=== PATIENT | female | born 1970 | race Caucasian/White ===

== ENCOUNTER 2018-10-20 07:30 | Inpatient (IN) | payer MEDICAID ==
[~2018-10-20] VITALS: Ht 165.1 cm; Wt 98.4 kg
[2018-10-20] VITALS (19 sets, daily range): BP systolic 99–160; BP diastolic 54–79
[~2018-10-20 07:30] MED LIST: OMEP20TA5 PO; VITAMIN B12 SQ
[2018-10-20] MEDS ORDERED: famotidine 20mg tablet PO ONE (09:45)
[2018-10-20] MEDS ORDERED: ringers solution, lacted 1,000 ML IV SCH ×2 (09:45→12:13)
[2018-10-20] MEDS ORDERED: albuterol 2.5 MG/3 ML nebule NEB ONE (09:45)
[2018-10-20] MEDS ORDERED: cefazolin/dext.iso 2gm/100ml 100 ML IV ONE (09:45)
[2018-10-20 11:20] LABS: BASOPHILS # (AUTO) 0.1 X10'3 (0-0.2); BASOPHILS % (AUTO) 0.9 % (0-1); EOSINOPHILS # (AUTO) 0.1 X10'3 (0-0.9); EOSINOPHILS % (AUTO) 0.8 % (0-6); LYMPHOCYTES % (AUTO) 19.7 % (21-51); MEAN CORPUSCULAR HEMOGLOBIN 24.3 PG (27.0-31.0); MEAN CORPUSCULAR VOLUME 76.1 FL (78-98); MEAN PLATELET VOLUME 8.7 FL (7.4-10.4); MONOCYTES # (AUTO) 0.9 X10'3 (0-0.9); MONOCYTES % (AUTO) 8.3 % (2-12); NEUTROPHILS # (AUTO) 7.3 X10'3 (1.8-7.7); NEUTROPHILS % (AUTO) 70.3 % (42-75); PRE OP HEMATOCRIT 34.7 % (35.0-45.0); PRE OP HEMOGLOBIN 11.1 g/dL (12.0-16.0); PRE OP PLATELET COUNT 233 X10'3 (140-440); RED BLOOD COUNT 4.57 X10'6 (4.20-5.60); RED CELL DISTRIBUTION WIDTH 15.2 % (11.5-14.5)
[2018-10-20 11:37] LABS: ALBUMIN 3.4 G/DL (3.4-5.0); ALBUMIN/GLOBULIN RATIO 0.8 (1.1-1.5); ALKALINE PHOSPHATASE 80 IU/L (46-116); BLOOD UREA NITROGEN 15 MG/DL (7-18); BUN/CREATININE RATIO 17.4 (6.6-38.0); CALCIUM 8.7 MG/DL (8.5-10.1); CHLORIDE 106 MMOL/L (99-107); CREATININE 0.86 MG/DL (0.40-0.90); PRE OP ALT 57 U/L (30-65); PRE OP ANION GAP 12 (8-16); PRE OP AST 57 U/L (10-37); PRE OP BILIRUB, TOTAL 0.4 MG/DL (0.0-1.0); PRE OP GLUCOSE 86 MG/DL (70-104); PRE OP POTASSIUM 4.2 MMOL/L (3.4-5.1); PRE OP SODIUM 138 MMOL/L (135-145); TOTAL PROTEIN 7.9 G/DL (6.4-8.2); eGFR 71 ML/MIN
[2018-10-20] MEDS ORDERED: fentaNYL/PF 50MCG/1 ML 2ML syringe IV PRN ×2 (12:15)
[2018-10-20] MEDS ORDERED: ondansetron/PF 4mg/2ml inj IV PRN ×2 (12:15→16:45)
[2018-10-20] MEDS ORDERED: ketorolac trometh. 30mg/ml inj. IV ONE (12:15)
[2018-10-20] MEDS ORDERED: HYDROmorphone inj. 0.5 MG/0.5 ML DISP.SYRIN IV PRN (12:15)
[2018-10-20] MEDS ORDERED: neostigmine methylsulfate 1 MG/ML 10ml vial ONE (12:51)
[2018-10-20] MEDS ORDERED: acetaminophen 1000 MG/100ml vial IV ONE (12:51)
[2018-10-20] MEDS ORDERED: glycopyrrolate 0.2mg/ml inj ONE (12:51)
[2018-10-20] MEDS ORDERED: rocuronium 10mg/ml inj IV ONE ×2 (12:51→14:58)
[2018-10-20] MEDS ORDERED: sevoflurane 250ml liquid IH ONE (12:51)
[2018-10-20] MEDS ORDERED: fentaNYL /PF 50mcg/ml 5ml ampule ONE (12:53)
[2018-10-20] MEDS ORDERED: midazolam 2 mg/2 ml injection ONE (12:53)
[2018-10-20] MEDS ORDERED: BUPIVAcaine/PF 2.5mg/ml (0.25%) 10ml vial ONE (12:57)
[2018-10-20] MEDS: ceFAZolin 1000mg inj ONE ×2 (13:31→13:32)
[2018-10-20] MEDS ORDERED: propofol inj 20 ML IV ONE (14:58)
[2018-10-20] MEDS ORDERED: fentaNYL/PF 50MCG/1 ML 2ML syringe ONE (14:59)
--- NOTE | 2018-10-20 15:38 | NUR ---
Received from OR via BED, accompanied by Anesthesiologist DR CAZARES and report given by Anesthesiologist. PT DROWSY, DENIES PAIN, ABDOMEN W/ABDOMINAL BINDER, PT HAS 7 LAP SITES W/ARMANDO AND BANDAIDS COVERING, ABDOMINAL BINDER CDI, MCCOY CATHETER TO GRAVITY DRAINAGE W/YELLOW URINE IN TUBING. Addendum: 10/20/18 at 1607 by Jennifer Cassidy RN Amended: Links added.
[2018-10-20] MEDS: HYDROmorphone inj. 0.5 MG/0.5 ML DISP.SYRIN IV PRN ×4 (16:04→16:57)
[2018-10-20] MEDS ORDERED: naloxone 0.4 mg/ml inj IV PRN (16:45)
[2018-10-20] MEDS ORDERED: CADD PCA waste documentation MC PRN (16:45)
[2018-10-20] MEDS ORDERED: HYDROmorphone/NS 1 mg/ml CADD 50 ML IV SCH (17:00)
[2018-10-20] MEDS ORDERED: CYAN10007 SQ (17:03)
[2018-10-20] MEDS: HYDROmorphone/NS 1 mg/ml CADD 50 ML IV SCH ×3 (17:07→23:00)
--- NOTE | 2018-10-20 17:18 | NUR ---
Report called to receiving nurse. Transferred via BED, 1 BAG OF PT Belongings SENT W/PT TO ROOM 360B, PT BECAME NAUSEATED IN ROUTE TO SURGICAL FLOOR, 4 MG ZOFRAN GIVEN, RECEIVING RN AT BEDSIDE TO RECEIVE PT, BLL, CALL LIGHT GIVEN, SIDE RAILS UP X 2. Special Issues communicated to receiving nurse. YES. Addendum: 10/20/18 at 1744 by Jennifer Cassidy RN Amended: Links added.
--- NOTE | 2018-10-20 17:32 | NUR ---
PT JUST CAME TO FLOOR. STARTED POST OP V/S AND TUCKED HER IN.
--- NOTE | 2018-10-20 18:10 | NUR ---
Patient in room SURG 360B. I have received report from ANNA Owusu and had the opportunity to ask questions and assume patient care.
--- NOTE | 2018-10-20 18:21 | NUR ---
Problems reprioritized. Patient report given, questions answered & plan of care reviewed with luis potter.
[2018-10-20] MEDS: Potassium Cl inj 20 MEQ in ringers solution, lacted 1,000 ML IV SCH (19:38)
[2018-10-20] MEDS: ceFAZolin 1GM/D5W- ADD-VANTAGE 50 ML IV SCH (23:50)
[2018-10-21] VITALS: BP 130/67
[2018-10-21] MEDS: Potassium Cl inj 20 MEQ in ringers solution, lacted 1,000 ML IV SCH ×4 (00:46→22:42)
[2018-10-21] MEDS: HYDROmorphone/NS 1 mg/ml CADD 50 ML IV SCH ×6 (01:00→11:00)
[2018-10-21 04:00] VITALS: BP 101/56
--- NOTE | 2018-10-21 06:45 | NUR ---
Patient in room [facility] 360. I have received report from Aron CASTILLO and had the opportunity to ask questions and assume patient care.
--- NOTE | 2018-10-21 06:51 | NUR ---
Problems reprioritized. Patient report given, questions answered & plan of care reviewed with ANNA Riley.
[2018-10-21 07:00] VITALS: BP 101/59
[2018-10-21] MEDS: ceFAZolin 1GM/D5W- ADD-VANTAGE 50 ML IV SCH ×2 (09:00→17:43)
[2018-10-21] MEDS: enoxaparin 40mg/0.4ml syringe SQ SCH (09:02)
[2018-10-21 11:00] VITALS: BP 109/60
[2018-10-21] MEDS: oxyCODONE/APAP 10/325mg tablet PO PRN ×3 (14:00→23:54)
[2018-10-21 18:00] VITALS: BP 124/63
--- NOTE | 2018-10-21 18:09 | NUR ---
Patient in room [facility] 360. I have received report from ANNA DIEZ and had the opportunity to ask questions and assume patient care.
--- NOTE | 2018-10-21 18:34 | NUR ---
Problems reprioritized. Patient report given, questions answered & plan of care reviewed with Aron CASTILLO.
[2018-10-22] VITALS: BP 129/49
[2018-10-22] MEDS: oxyCODONE/APAP 10/325mg tablet PO PRN ×2 (05:20→09:57)
[2018-10-22 06:00] VITALS: BP 112/55
--- NOTE | 2018-10-22 06:40 | NUR ---
Problems reprioritized. Patient report given, questions answered & plan of care reviewed with ANNA Baptiste.
[2018-10-22] MEDS: enoxaparin 40mg/0.4ml syringe SQ SCH (08:10)
[2018-10-22 11:00] VITALS: BP 121/60
[2018-10-22] MEDS ORDERED: ketorolac tromethamine 15mg/ml inj. IV PRN (11:30)
--- NOTE | 2018-10-22 15:45 | NUR ---
Per , the patient's discharge pain meds were called in to [facility]. Gilson with [facility] verified that patient's prescription was filled and picked up by patient's mother (per her signature) from the [facility] in [place], [place]. Pt's mother, Cyndi (at bedside), confirmed she picked up the med for the patient.
== END 2018-10-22 17:00 | disposition home or self-care (01) | DRG 227 ==
LOC: PAS IN 08:49 → EDSTATUS 12:30 → SUR 3N 20:24
PROVIDERS: ADMIT Surgery; ATTEND Surgery
PROC: 0DNU4ZZ Release Omentum, Percutaneous Endoscopic Approach (ICD-10-PCS; 2018-10-20)
PROC: 0WUF4JZ Supplement Abdominal Wall with Synthetic Substitute, Percutaneous Endoscopic Approach (ICD-10-PCS; principal; 2018-10-20 12:51)
DX: K43.2 Incisional hernia without obstruction or gangrene (principal); F12.90 Cannabis use, unspecified, uncomplicated; K66.0 Peritoneal adhesions (postprocedural) (postinfection); Z82.41 Family history of sudden cardiac death; Z86.14 Personal history of Methicillin resistant Staphylococcus aureus infection; Z87.442 Personal history of urinary calculi; Z87.891 Personal history of nicotine dependence; Z90.49 Acquired absence of other specified parts of digestive tract; Z98.51 Tubal ligation status; Z98.891 History of uterine scar from previous surgery; Z88.8 Allergy status to other drugs, medicaments and biological substances
CPT/HCPCS: 36415; 80053; 82948; 85025; 87081; 93005; A4215; A4618; A7000; C1758; C1781; G0378; J0131; J0690; J1170; J1650; J1885; J2250; J2405; J2704; J2710; J3010; J3480; J3490; J7120

== ENCOUNTER 2019-08-10 08:20 | Day surgery (SDC) | payer MEDICAID ==
[2019-08-03 16:31] LABS: BASOPHILS # (AUTO) 0.1 X10'3 (0-0.2); BASOPHILS % (AUTO) 1.3 % (0-1); EOSINOPHILS # (AUTO) 0.1 X10'3 (0-0.9); LYMPHOCYTES # (AUTO) 1.6 X10'3 (1.1-4.8); LYMPHOCYTES % (AUTO) 15.3 % (21-51); MEAN CORPUSCULAR HEMOGLOBIN 27.3 PG (27.0-31.0); MEAN CORPUSCULAR HGB CONC 32.6 g/dL (33.0-36.5); MEAN CORPUSCULAR VOLUME 83.8 FL (78-98); MEAN PLATELET VOLUME 9.6 FL (7.4-10.4); MONOCYTES # (AUTO) 0.7 X10'3 (0-0.9); MONOCYTES % (AUTO) 7.1 % (2-12); NEUTROPHILS % (AUTO) 75.3 % (42-75); PRE OP PLATELET COUNT 217 X10'3 (140-440); RED BLOOD COUNT 4.77 X10'6 (4.20-5.60); RED CELL DISTRIBUTION WIDTH 17.3 % (11.5-14.5)
[2019-08-03 16:41] LABS: ALBUMIN 3.4 G/DL (3.4-5.0); ALBUMIN/GLOBULIN RATIO 0.8 (1.1-1.5); ALKALINE PHOSPHATASE 99 IU/L (46-116); BLOOD UREA NITROGEN 10 MG/DL (7-18); CALCIUM 9.4 MG/DL (8.5-10.1); CHLORIDE 107 MMOL/L (99-107); CREATININE 1.11 MG/DL (0.40-0.90); PRE OP ALT 66 U/L (30-65); PRE OP ANION GAP 10 (8-16); PRE OP AST 76 U/L (10-37); PRE OP BILIRUB, TOTAL 0.5 MG/DL (0.0-1.0); PRE OP GLUCOSE 117 MG/DL (70-104); PRE OP SODIUM 140 MMOL/L (135-145); TOTAL CARBON DIOXIDE 22.8 MMOL/L (24-32); TOTAL PROTEIN 7.9 G/DL (6.4-8.2); eGFR 53 ML/MIN
[2019-08-03 16:43] LABS: CLARITY,URINE SLIGHTLY CLOUDY (Clear); COLOR,URINE YELLOW (Yellow); GLUCOSE, URINE NEGATIVE (Neg); KETONES,URINE NEGATIVE (Neg); LEUKOCYTE ESTERASE ,URINE NEGATIVE (Neg); NITRITES, URINE NEGATIVE (Neg); OCCULT BLOOD,URINE NEGATIVE (Neg); PH,URINE 5.5 (4.8-8.0); PROTEIN,URINE NEGATIVE (Neg)
[2019-08-03 16:50] LABS: UA COLLECTION TYPE CLN CATCH MIDSTREAM
[2019-08-03 16:51] LABS: BACTERIA,URINE 1+ /HPF (Neg); MUCUS STRANDS MANY /LPF (Neg); RBC,URINE NONE SEEN /HPF (0-2); SQUAMOUS EPITHELIAL CELL,UR MANY /LPF (FEW); WBC,URINE 0-4 /HPF (0-4)
[~2019-08-10] VITALS: Ht 165.1 cm; Wt 102.1 kg
[2019-08-10] VITALS (9 sets, daily range): BP systolic 112–126; BP diastolic 59–81
[~2019-08-10 08:20] MED LIST changes: +CYAN10007 SQ; -VITAMIN B12 SQ; +cefazolin/dext.iso 2gm/50ml 50 ML IV ONE; +famotidine 20mg tablet PO ONE; +ringers solution, lacted 1,000 ML IV SCH
[2019-08-10] MEDS ORDERED: LIDOcaine 1% (10mg/ml) 2ml vial ONE (09:06)
[2019-08-10] MEDS ORDERED: BUPIVAcaine/PF 2.5 mg/ml (0.25%) 30ml vial ONE (10:57)
[2019-08-10] MEDS ORDERED: ceFAZolin 1000mg inj ONE (10:57)
[2019-08-10] MEDS ORDERED: sevoflurane 250ml liquid IH ONE (11:24)
[2019-08-10] MEDS ORDERED: ringers solution, lacted 1,000 ML IV SCH (11:26)
[2019-08-10] MEDS ORDERED: midazolam 2 mg/2 ml injection ONE (11:29)
[2019-08-10] MEDS ORDERED: fentaNYL/PF 50MCG/1 ML 2ML syringe ONE (11:29)
[2019-08-10] MEDS ORDERED: HYDROmorphone inj. 0.5 MG/0.5 ML DISP.SYRIN IV PRN (11:30)
[2019-08-10] MEDS ORDERED: ondansetron/PF 4mg/2ml inj IV PRN (11:30)
[2019-08-10] MEDS ORDERED: fentaNYL/PF 50MCG/1 ML 2ML syringe IV PRN ×2 (11:30)
[2019-08-10] MEDS ORDERED: ketorolac trometh. 30mg/ml inj. IV ONE (11:30)
[2019-08-10] MEDS ORDERED: acetaminophen 1,000mg/100ml IV 100 ML IV PRN (11:30)
[2019-08-10] MEDS ORDERED: propofol inj 20 ML IV ONE (11:31)
[2019-08-10] MEDS ORDERED: rocuronium 10mg/ml inj IV ONE (11:31)
[2019-08-10] MEDS ORDERED: dexamethasone sod phosphate 4mg/ml inj. ONE (11:40)
[2019-08-10] MEDS ORDERED: sugammadex 200mg/2ml injection IV ONE (12:10)
[2019-08-10] MEDS ORDERED: ondansetron/PF 4mg/2ml inj ONE (12:11)
--- NOTE | 2019-08-10 12:20 | NUR ---
Received from OR via [facility] , accompanied by Anesthesiologist SAGE and report given by Anesthesiolgist. PATIENT WITH ISLAND DRESSING THAT IS CDI AT THIS TIME. VSS. MEDICATED FOR PAIN UPON ARRIVAL. PATIENT ALSO WITH 2 LAP SITES THAT ARE DERMABOND CLOSED, CDI. 20G PIV IN RIGHT UE RUNNING LR AT 100. 10L MASK ON WITH 100% SATURATIONS. Addendum: 08/10/19 at 1228 by Nakul Santana RN, RN Amended: Links added.
[2019-08-10] MEDS: HYDROmorphone inj. 0.5 MG/0.5 ML DISP.SYRIN IV PRN ×2 (12:32→12:45)
--- NOTE | 2019-08-10 13:20 | NUR ---
PATIENT A&OX4, DENIES PAIN, V/S WNL, NEUROVASCULAR CHECKS INTACT, PIV D/C, SCD OFF, LAP SITES OF ABDOMEN CDI.. I HAVE REVIEWED D/C INSTRUCTIONS WITH PATIENT AND FAMILY HAVE VERBALIZED UNDERSTANDING.PATIENT WAS D/C HOME WITH ALL BELONGINGS AND FAMILY GAVE TRANSPORT HOME. Addendum: 08/10/19 at 1429 by Nakul Santana RN, RN Amended: Links added.
== END 2019-08-10 13:40 | disposition home or self-care (01) ==
LOC: PAS 08:20
PROVIDERS: ATTEND Surgery
DX: K43.2 Incisional hernia without obstruction or gangrene (principal); M19.90 Unspecified osteoarthritis, unspecified site; K21.9 Gastro-esophageal reflux disease without esophagitis; E66.9 Obesity, unspecified; Z68.37 Body mass index [BMI] 37.0-37.9, adult; F17.210 Nicotine dependence, cigarettes, uncomplicated; Z86.14 Personal history of Methicillin resistant Staphylococcus aureus infection; Z87.442 Personal history of urinary calculi; Z88.5 Allergy status to narcotic agent; Z88.8 Allergy status to other drugs, medicaments and biological substances; Z79.899 Other long term (current) drug therapy; Z98.890 Other specified postprocedural states; Z90.49 Acquired absence of other specified parts of digestive tract; Z98.51 Tubal ligation status; Z72.89 Other problems related to lifestyle; Z82.49 Family history of ischemic heart disease and other diseases of the circulatory system
CPT/HCPCS: 36415; 49560; 80053; 81001; 82948; 85025; 93005; C9399; J0690; J1100; J1170; J1885; J2001; J2250; J2405; J2704; J3010; J3490; J7120; U0003; A4618; A7000